=== PATIENT | male | born 1965 | race Caucasian/White ===

== ENCOUNTER 2017-06-21 16:41 | Emergency (ER) | payer OTHER ==
[2017-06-21 16:50] VITALS: BP 122/85; PULSE 70; TEMP 97.8; BMI 27.4
--- NOTE | 2017-06-21 18:00 | PDOC ---
History of Present Illness - General Chief Complaint: Pain, Acute Stated Complaint: PAIN Time Seen by Provider: 06/21/17 16:57 History Source: Patient Exam Limitations: No Limitations - History of Present Illness Initial Comments: 06/21/17 17:55 This is a 52-year-old male without significant past medical history who presents today with 2 weeks of right forearm pain. Patient denies any trauma. Patient reports that he works out at the gym for multiple hours a day. He's been trying to take Motrin 800 mg every 8 hours with minimal relief. Patient denies fever, trauma, injury. Occurred: reports: other (1 week) Severity: reports: mild Past History - Past Medical History Allergies/Adverse Reactions: Allergies Allergy/AdvReac Type Severity Reaction Status Date / Time No Known Allergies Allergy Verified 06/21/17 16:43 Home Medications: Ambulatory Orders NK [No Known Home Medication] 06/21/17 Hypercholesterolemia: Yes - Surgical History Abdominal Surgery: Yes (? reason (in [facility] - Immunization History Immunization Up to Date: Yes - Suicide/Smoking/Psychosocial Hx Smoking History: Never smoked Have you smoked in the past 12 months: No Information on smoking cessation initiated: No Hx Alcohol Use: No Drug/Substance Use Hx: No Substance Use Type: None Hx Substance Use Treatment: No Review of Systems - Review of Systems Able to Perform ROS?: Yes Is the patient limited Khmer proficient: No Constitutional: No: Symptoms Reported HEENTM: No: Symptoms Reported Respiratory: No: Symptoms reported Cardiac (ROS): No: Symptoms Reported ABD/GI: No: Symptoms Reported : No: Symptoms Reported Musculoskeletal: Yes: See HPI Integumentary: No: Symptoms Reported Neurological: No: Symptoms reported Endocrine: No: Symptoms Reported *Physical Exam - Vital Signs Last Vital Signs Temp Pulse Resp BP Pulse Ox 97.8 F 70 16 122/85 98 06/21/17 16:44 06/21/17 16:44 06/21/17 16:44 06/21/17 16:44 06/21/17 16:44 - Physical Exam General Appearance: Yes: Appropriately Dressed. No: Apparent Distress HEENT: positive: EOMI, TRENT, Normal ENT Inspection Neck: positive: Trachea midline, Supple Respiratory/Chest: positive: Lungs Clear, Normal Breath Sounds. negative: Respiratory Distress Cardiovascular: positive: Regular Rhythm, Regular Rate, S1, S2. negative: Edema Gastrointestinal/Abdominal: positive: Normal Bowel Sounds, Soft. negative: Tender Musculoskeletal: positive: Other (Tenderness over right supinator muscle. Also tender over right lateral epicondyle.) Extremity: positive: Normal Capillary Refill, Normal Inspection, Other ( Tenderness over right supinator muscle. Also tender over right lateral epicondyle.) Integumentary: positive: Normal Color, Dry, Warm Neurologic: positive: knitting demonstrator II-XII NML intact, Fully Oriented, Alert, Normal Mood/ Affect, Normal Response, Motor Strength 5/5 Medical Decision Making - Medical Decision Making 06/21/17 17:56 A/P: This is a 52-year-old male without significant past medical history who presents today with 2 weeks of right forearm pain. Patient denies any trauma. Patient reports that he works out at the gym for multiple hours a day. He's been trying to take Motrin 800 mg every 8 hours with minimal relief. Patient denies fever, trauma, injury. No obvious deformity or palpable crepitus. Patient able to fully extend and flex the elbow against resistance. Strength 5 out of 5. Full range of motion of wrist and fingers. Patient denies any numbness or tingling distal to pain in elbow. Patient with increased pain palpable over supinator muscle. Dx: Tendinitis of the lateral elbow. I will discharge patient with strict rest and instructions to follow-up with primary medical doctor if pain is not resolved within 1 week. Patient instructed to purchase an adjustable elbow strap to help relief pain from tendinitis. I discussed the physical exam findings, ancillary test results and final diagnoses with the patient. I answered all of the patient's questions. The patient was satisfied with the care received and felt comfortable with the discharge plan and treatment plan. The patient will call his doctor within 96 hours to arrange follow-up and will return to the Emergency Department with any new, persistent or worsening symptoms. *DC/Admit/Observation/Transfer Diagnosis at time of Disposition: Tennis elbow Qualifiers: Laterality: right Qualified Code(s): M77.11 - Lateral epicondylitis, right elbow - Discharge Dispostion Disposition: HOME Condition at time of disposition: Stable Admit: No - Referrals Referrals: Skinny Valentino MD [Staff Physician] - - Patient Instructions Printed Discharge Instructions: DI for Lateral Epicondylitis (Tennis Elbow) Additional Instructions: Rest elbow as much as possible. Take Motrin as directed by manufacturers instructions as needed for pain. Use ice for 20 minutes at a time to help relieve pain. May repeat after 20 minutes without ice. An elbow strap may be helpful in reducing pain going forward. Return to emergency department for any worsening pain, decreased movement, numbness or tingling of the fingers, or any other concerns. Thank you very much for choosing us to provide your emergent healthcare needs. Descanse el codo lo mximo posible. Schriever Motrin siguiendo las instrucciones del fabricante segn sea necesario para el dolor. Usa hielo marciano 20 minutos a la vez para ayudar a aliviar el dolor. Puede repetirse despus de 20 minutos sin hielo. Etta anderson de codo puede ser til para reducir el dolor en el futuro. Regrese al departamento de emergencias por cualquier dolor empeorado, disminuci n del movimiento, entumecimiento u hormigueo de los dedos, o cualquier otra inquietud. Muchas wil por elegirnos para brindarle lona necesidades mdicas emergentes. Print Language: HUNGARIAN
== END 2017-06-21 18:07 | disposition home or self-care (01) ==
LOC: JERFT 16:41
DX: M77.11 Lateral epicondylitis, right elbow (principal); E78.00 Pure hypercholesterolemia, unspecified
CPT/HCPCS: 99281-25